=== PATIENT | female | born 1950 | race Asian ===

== ENCOUNTER 2016-11-24 16:15 | Emergency (ER) | payer OTHER ==
[~2016-11-24] VITALS: Ht 165.1 cm; Wt 42.6 kg
[2016-11-24 16:15] VITALS: BP_SYST 122
[2016-11-24 17:18] LABS: BASOPHILS % (AUTO) 0.2 % (0.0-2.0); EOSINOPHILS % (AUTO) 0.4 % (0.0-4.0); HEMATOCRIT 41.5 % (36-48); HEMOGLOBIN 13.7 g/dL (12.0-16.0); LYMPHOCYTES # (AUTO) 0.7 K/uL (1.0-5.5); LYMPHOCYTES % (AUTO) 10.3 % (20.5-51.5); MEAN CORPUSCULAR HEMOGLOBIN 29 pg (27-31); MEAN CORPUSCULAR HGB CONC 33 % (32-36); MEAN CORPUSCULAR VOLUME 89 fL (79.0-98.0); MONOCYTES # (AUTO) 0.4 K/uL (0.0-1.0); MONOCYTES % (AUTO) 5.3 % (1.7-9.3); NEUTROPHILS # (AUTO) 5.5 K/uL (1.8-7.7); NEUTROPHILS % (AUTO) 83.8 % (40.0-70.0); PLATELET COUNT (AUTO) 191 K/uL (130-430); RED BLOOD CELL COUNT(AUTO) 4.65 MIL/uL (4.2-6.2); RED CELL DISTRIBUTION WIDTH 12.3 % (9.0-15.0); WHITE BLOOD COUNT (AUTO) 6.6 K/uL (4.8-10.8)
[2016-11-24 17:26] LABS: CALCIUM 8.5 mg/dL (8.4-11.0); CREATININE 0.62 mg/dL (0.55-1.30)
[2016-11-24 17:31] LABS: ALBUMIN 3.8 g/dL (3.4-4.8); INR 0.9 (0.8-1.2); TOTAL BILIRUBIN 0.6 mg/dL (0.0-1.0); TOTAL PROTEIN, SERUM 6.9 g/dL (6.4-8.3)
[2016-11-24 17:56] LABS: BILIRUBIN,URINE NEGATIVE (NEGATIVE); BLOOD, URINE NEGATIVE (NEGATIVE); CLARITY/URINE CLEAR (CLEAR); COLOR,URINE YELLOW (YELLOW); GLUCOSE,URINE NEGATIVE (NEGATIVE); KETONES,URINE TRACE (NEGATIVE); LEUKOCYTE ESTERASE ,URINE NEGATIVE (NEGATIVE); NITRITE, URINE NEGATIVE (NEGATIVE); PROTEIN URINE NEGATIVE (NEGATIVE); UROBILINOGEN,URINE 0.2 (0.2-1.0)
[2016-11-24 18:23] VITALS: BP_SYST 120
== END 2016-11-24 18:23 | disposition home or self-care (01) ==
LOC: SED 16:15
DX: R10.31 Right lower quadrant pain (principal); G20 Parkinson's disease
CPT/HCPCS: 36415; 80053; 81003; 82150-TC; 83690-TC; 85025; 85610-TC; 85730-TC; 99285

== ENCOUNTER 2017-08-24 20:12 | Emergency (ER) | payer OTHER ==
[~2017-08-24] VITALS: Ht 157.5 cm; Wt 49.9 kg
[2017-08-24 20:15] VITALS: BP_SYST 132
[2017-08-24] MEDS ORDERED: KETOROLAC TROMETHAMINE 30 MG VIAL IM ONE (21:00)
[2017-08-24] MEDS ORDERED: HYDROcodone/ACETAMIN 5-325 MG TAB (NORCO/ VICODIN) PO ONE (21:00)
[2017-08-24 23:50] VITALS: BP_SYST 130
== END 2017-08-24 23:50 | disposition home or self-care (01) ==
LOC: SED 20:12
DX: S52.025A Nondisplaced fracture of olecranon process without intraarticular extension of left ulna, initial encounter for closed fracture (principal); S80.02XA Contusion of left knee, initial encounter; S80.01XA Contusion of right knee, initial encounter; G20 Parkinson's disease; W19.XXXA Unspecified fall, initial encounter; Y93.89 Activity, other specified; Y92.89 Other specified places as the place of occurrence of the external cause; Y99.8 Other external cause status
CPT/HCPCS: 29105; 73080; 73560; 96372; 99284; J1885